=== PATIENT | male | born 1985 | race Caucasian/White ===

== ENCOUNTER 2020-01-16 10:44 | Emergency (ER) | payer OTHER, BC ==
[~2020-01-16] VITALS: Ht 177.8 cm; Wt 83.9 kg
--- OUTSIDE RECORDS SUMMARY | ~2020-01-16 | XMS | Encounter Summary ---
Demographics + + + | Address | [address] | | | [place] [address] | + + + | Home Phone | | + + + | Preferred Language | Unknown | + + + | Marital Status | | + + + | Oriental Orthodox Affiliation | Unknown | + + + | Race | White | + + + | Ethnic Group | Not or | + + + Author + + + | Author | [facility] | | | and [place] | + + + | Organization | [facility] | | | and [place] | + + + | Address | Unknown | + + + | Phone | Unavailable | + + + Support + + + + + | Name | Relationship | Address | Phone | + + + + + | Betty Merrill | ECON | [address] | | | | | [place] | | | | | [address] | | + + + + + Care Team Providers + +------+ + | Care Warehouse Hand Name | Role | Phone | + +------+ + | Tim Urena MD | PCP | | + +------+ + Reason for Visit +--------+ + | Reason | Comments | +--------+ + | Apnea | | +--------+ + Encounter Details +--------+---------+ + + + | Date | Type | Department | Care Team | Description | +--------+---------+ + + + | 09/15/ | Office | [facility] | Sachin Jimenez | HIRA (obstructive | | 2013 | Visit | SLEEP DISORDER [address] | MD [address] | sleep apnea) | | | | [address] [place] | [address] [place] | (Primary Dx) | | | | [place] [address] | [place] [address] | | | | | [phone] | [phone] | | | | | | | | +--------+---------+ + + + Social History + + + +--------+------+ | Tobacco Use | Types | Packs/Day | Years | Date | | | | | Used | | + + + +--------+------+ | Current Every Day | Cigarettes | 1 | 5 | | | Smoker | | | | | + + + +--------+------+ + +---+---+---+ | Smokeless Tobacco: | | | | | Current User | | | | + +---+---+---+ + + +---------+ + | Alcohol Use | Drinks/Week | oz/Week | Comments | + + +---------+ + | Yes | | | 6 pack every 3 weeks | + + +---------+ + + + + | Sex Assigned at | Date Recorded | | | | + + + | Not on file | | + + + documented as of this encounter Last Filed Vital Signs + + + + + | Vital Sign | Reading | Time Taken | Comments | + + + + + | Blood Pressure | 142/82 | 09/15/2013 8:42 AM | | | | | PDT | | + + + + + | Pulse | 66 | 09/15/2013 8:42 AM | | | | | PDT | | + + + + + | Temperature | - | - | | + + + + + | Respiratory Rate | 16 | 09/15/2013 8:42 AM | | | | | PDT | | + + + + + | Oxygen Saturation | 97% | 09/15/2013 8:42 AM | | | | | PDT | | + + + + + | Inhaled Oxygen | - | - | | | Concentration | | | | + + + + + | Weight | 95.4 kg (210 lb 4.8 | 09/15/2013 8:42 AM | | | | oz) | PDT | | + + + + + | Height | - | - | | + + + + + | Body Mass Index | 29.75 | 07/21/2013 10:43 AM | | | | | PST | | + + + + + documented in this encounter Progress Notes Sachin Jimenez Jr., MD - 09/15/2013 8:55 AM PDTThe patient comes in for follow-up on CPA P therapy for HIRA. The patient is on a Resmed S9 autoset CPAP unit which is set at 5-20cm of pressure. The patient has worn CPAP for 14 out of 17 days. The average titrated pressure is 5.3cm; the 95th percentile pressure is 7.6cm; and the maximum titrated pressure is 8.5 cm. The calculated AHI is 0.5. The median daily usage is 7 hours and 6 minutes. He states that arlin bueno is gradually getting used to CPAP and that he has been able to wear it for two nights all night long. He notices that he might feel a little better in the daytime but he isn't sure a bout that. He would like to continue with this. He is having no technical issues with is CPA P. A: HIRA: He is doing well so far on CPAP for mild HIRA. I would like him to continue to wear this every night and I would like to clinically re-evaluate symptoms in 4 more weeks. P: RTC in 4 weeks for clinical reassessment (patient report, 's report, and repeat ques tionnaires). Today, 15 minutes was spent face to face with the patient; the majority of time was spent nidia harper. CC: Dr. Olivia Urena documented in th is encounter Miscellaneous Notes Miscellaneous - VERO KRUSE - 09/15/2013 12:00 AM PDT documented in this encounter Plan of Treatment Not on filedocumented as of this encounter Visit Diagnoses + + | Diagnosis | + + | HIRA (obstructive sleep apnea) - Primary Obstructive sleep apnea (adult) (pediatric) | + + documented in this encounter"
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
--- OUTSIDE RECORDS SUMMARY | ~2020-01-16 | XMS | Clinical Summary ---
Demographics + + + | Address | [address] | | | [place] [address] | + + + | Home Phone | | + + + | Preferred Language | Unknown | + + + | Marital Status | | + + + | Baptist Affiliation | Unknown | + + + | Race | White | + + + | Ethnic Group | Not or | + + + Author + + + | Author | [facility] | | | and [place] | + + + | Organization | [facility] | | | [...] [place] | | | | | [address] | | + + + + + Care Team Providers + +------+ + | Care Slice Cutting Machine Operator Helper Name | Role | Phone | + +------+ + | Tim Urena MD | PCP | | + +------+ + Allergies No Known Allergies Medications + + + +---------+------+------+-------+ | Medication | Sig | Dispensed | Refills | Star | End | Statu | | | | | | t | Date | s | | | | | | Date | | | + + + +---------+------+------+-------+ | potassium citrate | Take 10 mEq by mouth | | 0 | | | Activ | | (UROCIT-K) 10 mEq SR | Daily. | | | | | e | | tablet | | | | | | | + + + +---------+------+------+-------+ | | Take 25 mg by mouth | | 0 | | | Activ | | hydrochlorothiazide | Daily. | | | | | e | | 25 mg tablet | | | | | | | + + + +---------+------+------+-------+ Active Problems + + + | Problem | Noted Date | + + + | Organic insomnia | | + + + | Nephrolithiasis | | + + + Family History + + +------+ + | Medical History | Relation | Name | Comments | + + +------+ + | Heart disease | Father | | | + + +------+ + + +------+ + + | Relation | Name | Status | Comments | + +------+ + + | Brother | | Alive | autism | + +------+ + + | Brother | | Alive | | + +------+ + + | Daughter | | Alive | | + +------+ + + | Father | | Alive | | + +------+ + + | Mother | | | | + +------+ + + | Sister | | Alive | obese | + +------+ + + | Sister | | Alive | obese | + +------+ + + | Sister | | Alive | obese | + +------+ + + | Sister | | Alive | | + +------+ + + | Sister | | Alive | | + +------+ + + | Sister | | Alive | | + +------+ + + | Sister | | Alive | | + +------+ + + Social History + + + [...] on file | | + + + Last Filed Vital Signs + + + + + | Vital Sign | Reading | Time Taken | Comments | + + + + + | Blood Pressure | 108/70 | 10/15/2013 11:31 AM | | | | | PDT | | + + + + + | Pulse | 71 | 10/15/2013 11:31 AM | | | | | PDT | | + + + + + | Temperature | - | - | | + + + + + | Respiratory Rate | 16 | 10/15/2013 11:31 AM | | | | | PDT | | + + + + + | Oxygen Saturation | 98% | 10/15/2013 11:31 AM | | | | | PDT | | + + + + + | Inhaled Oxygen | - | - | | | Concentration | | | | + + + + + | Weight | 91.2 kg (201 lb 1.6 | 10/15/2013 11:31 AM | | | | oz) | PDT | | + + + + + | Height | 179.1 cm (5' 10.5") | 07/21/2013 10:43 AM | | | | | PST | | + + + + + | Body Mass Index | 28.45 | 07/21/2013 10:43 AM | | | | | PST | | + + + + + Plan of Treatment + + +-------+ + | Health Maintenance | Due Date | Last | Comments | | | | Done | | + + +-------+ + | Vaccine: | | | | | Dtap/Tdap/Td (1 - | 5 | | | | Tdap) | | | | + + +-------+ + | Vaccine: Influenza | | | | | (#1) | 0 | | | + + +-------+ + Results Not on filefrom Last 3 Months Insurance +-------+--------+ +--------+-------+---------+------+ | Payer | Benefi | Subscriber | Effect | Phone | Address | Type | | | t Plan | ID | dharmesh | | | | | | / | | Dates | | | | | | Group | | | | | | +-------+--------+ +--------+-------+---------+------+ | BCBS | BCBS | [id number] | 05/28/19 | | | PPO | | | [place] | | 12-Pre | | | | | | L FEP | | sent | | | | +-------+--------+ +--------+-------+---------+------+ + +--------+ +--------+ + + | Guarantor Name | Accoun | Relation to | Date | Phone | Billing Address | | | t Type | Patient | of | | | | | | | | | | + +--------+ +--------+ + + | Coleman Merrill | Person | Self [birth year] | [address] | | | [place] | | 1985 | [phone] | [place] [address] | | | garo | | | [address] (Home) | | + +--------+ +--------+ + + Advance Directives + + + + + | Type | Date Recorded | Patient | Explanation | | | | Cobol Programmer | | + + + + + | Power of | | | | | Precinct Police Captain | | | | + + + + + | Advance | | | | | Directive | | | | + + + + +
--- OUTSIDE RECORDS SUMMARY | ~2020-01-16 | XMS | Encounter Summary ---
Demographics + + + | Address | [address] | | | [place] [address] | + + + | Home Phone | | + + + | Preferred Language | Unknown | + + + | Marital Status | | + + + | Anabaptism Affiliation | Unknown | + + + | Race | White | + + + | Ethnic Group | Not or | + + + Author + + + | Author | [facility] | | | and [place] | + + + | Organization | [facility] | | | and [place] | + + + | Address | Unknown | + + + | Phone | Unavailable | + + + Support + + + + + | Name | Relationship | Address | Phone | + + + + + | Betty Merrill | ECON | [address] | | | | | [place] | | | | | [address] | | + + + + + Care Team Providers + +------+ + | Care Rainbow Trout Farm Manager Name | Role | Phone | + +------+ + | Tim Urena MD | PCP | | + +------+ + Reason for Referral Evaluate & Treat (Routine) +--------+ + + + + + | Status | Reason | Specialty | Diagnoses / | Referred By | Referred To | | | | | Procedures | Contact | Contact | +--------+ + + + + + | Closed | Specialty | Sleep | Diagnoses | Tony | [facility] | | | Services | Medicine | Obstructive | Sachin Odonnell | [address] | | | Required | | sleep apnea | MD [address] | | | | | (adult) | [address] [place] | [place], | | | | | (pediatric) | [place] | [place] [address] | | | | | Periodic | [place], [place] | Phone: | | | | | limb | [address] | [phone] | | | | | movement | Phone: | Fax: | | | | | disorder | [phone] | [phone] | | | | | Sleep | Fax: | | | | | | disorder due | [phone] | | | | | | to a | | | | | | | general | | | | | | | medical | | | | | | | condition, | | | | | | | insomnia | | | | | | | type | | | +--------+ + + + + + Encounter Details +--------+ + + + + | Date | Type | Department | Care Team | Description | +--------+ + + + + | 08/12/ | Transcribed | [facility] | Sachin Jimenez | Obstructive sleep | | 2014 | Orders | [facility] SLEEP | MD [address] | apnea (adult) | | | | CENTER [address] | [address] [place] | (pediatric) (Primary | | | | [place], [place] | [place] [address] | Dx); Periodic limb | | | | [address] | [phone] | movement disorder; | | | | [phone] | | Sleep disorder due | | | | | | to a general medical | | | | | | condition, insomnia | | | | | | type | +--------+ + + + + Social History + + [...] + + documented as of this encounter Plan of Treatment + + +--------+ + + | Name | Type | Priori | Associated Diagnoses | Order Schedule | | | | ty | | | + + +--------+ + + | Ambulatory Referral | Outpatient | Routin | Obstructive sleep | 1 Occurrences | | to Sleep Studies | Referral | e | apnea (adult) | starting 08/12/2013 | | | | | (pediatric) | until 08/12/2014 | | | | | Periodic limb | | | | | | movement disorder | | | | | | Sleep disorder due | | | | | | to a general medical | | | | | | condition, insomnia | | | | | | type | | + + +--------+ + + documented as of this encounter Visit Diagnoses + + | Diagnosis | + + | Obstructive sleep apnea (adult) (pediatric) - Primary | + + | Periodic limb movement disorder | + + | Sleep 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"
--- OUTSIDE RECORDS SUMMARY | ~2020-01-16 | XMS | Encounter Summary ---
Demographics + + + | Address | [address] | | | [place] [address] | + + + | Home Phone | | + + + | Preferred Language | Unknown | + + + | Marital Status | | + + + | Muslim Affiliation | Unknown | + + + | Race | White | + + + | Ethnic Group | Not or | + + + Author + + + | Author | [facility] | | | and [place] | + + + | Organization | [facility] | | | [...] [place] | | | | | [address] | | + + + + + Care Team Providers + +------+ + | Care Air Surveillance Operator Name | Role | Phone | + +------+ + | Tim Urena MD | PCP | | + +------+ + Encounter Details +--------+---------+ + + + | Date | Type | Department | Care Team | Description | +--------+---------+ + + + | 08/29/ | Office | [facility] | Sachin Jimenez | Paradoxical insomnia | | 2014 | Visit | SLEEP DISORDER [address] | MD [address] | (Primary Dx); HIRA | | | | [address] [place] | [address] [place] | (obstructive sleep | | | | [place] [address] | [place] [address] | apnea); PTSD | | | | [phone] | [phone] | (post-traumatic | | | | | | stress disorder) | +--------+---------+ + + + Social History [...] + + + | Blood Pressure | 118/82 | 08/29/2013 9:17 AM | | | | | PDT | | + + + + + | Pulse | 76 | 08/29/2013 9:17 AM | | | | | PDT | | + + + + + | Temperature | - | - | | + + + + + | Respiratory Rate | 16 | 08/29/2013 9:17 AM | | | | | PDT | | + + + + + | Oxygen Saturation | 98% | 08/29/2013 9:17 AM | | | | | PDT | | + + + + + | Inhaled Oxygen | - | - | | | Concentration | | | | + + + + + | Weight | 95.4 kg (210 lb 6.4 | 08/29/2013 9:17 AM | | | | oz) | PDT | | + + + + + | Height | - | - | | + + + + + | Body Mass Index | 29.76 | 07/21/2013 10:43 AM | | | | | PST | | + + + + + documented in this encounter Progress Notes Sachin Jimenez Jr., MD - 08/29/2013 9:23 AM PDTThe patient comes in for f/u on his PSG w hich was performed on 08/12/2013 which showed: Sleep Architecture: Lights out was recorded at 2326 hundred hours and lights on was recorde d at 0713 hundred hours. The latency to sleep onset was normal at 19 minutes. The patient sl ept for 412 minutes out of 467 minutes of study time resulting an a sleep efficiency that wa s near normal at 88.2%. The amount of N1 sleep was normal occupying 4.7% of the Total Sleep Time; the amount of N2 sleep was normal occupying 34.3% of the Total Sleep Time; the amount of N3 sleep was normal in somewhat increased occupying 28.8% of the Total Sleep Time; the am ount of REM sleep was increased occupying 32.2 of the Total Sleep Time and the latency to RE M sleep was mildly short at 50.5 minutes. The patient spent 63.4% of the evening in the left lateral decubitus position, 17.7% of the evening in the right lateral decubitus position, 15% of the evening in the supine position, and 3.9% of the evening in the supine position. Sleep was not significantly fragmented; the Arousal Index was 9.5. The patient reported this to be a worse than usual night's sleep. The patient estimated gustabo t it took 15 minutes to fall asleep which is the same as normal. He felt that he awakened mo re than 5 times and that he slept for 6 hours. He didn't feel that he slept very deeply and that his sleep wasn't very refreshing. The sleep architecture actually demonstrated about 52 minutes more sleep than his estimate and the quality of objective sleep was excellent. Slee p was not significant fragmented. The discordance suggests a degree of "sleep state misperce ption." Cardiopulmonary Monitoring: The heart rate averaged 60 beats per minute. Minimal rate varia bility was noted. The rhythm was sinus. In the course of the evening there were 2 obstructive apneas, 0 mixed apneas, 0 central lock technician eas, 48 hypopneas, and 1 Respiratory Effort Related Arousals (RERA's). The Respiratory Distu rbance Index (RDI) was minimally elevated at 7.4; the Apnea-Hypopnea Index was minimally leonidas vated at 7.3; the Apnea Index (AI) was normal at 0.1. The respiratory events were sleep stag e dependent. They were exclusively seen in REM sleep. The respiratory events were mildly pos itional and were somewhat more frequent in the supine position. The respiratory events occasioned minimal sleep fragmentation; the Respiratory Arousal Inde x was 1. The anupama oxygen saturation was 84% and the patient spent 5.2 minutes with an oxygen satura tion of less than 88%. ETCO2 was normal. Limb Movement Monitoring: There were 0 Periodic Limb Movements of which 0 were associated w ith arousals; the PLMS Arousal Index was normal at 0. Interpretation: This polysomnogram is abnormal secondary to: 1) Very mild HIRA in REM sleep is noted and this is associated with very mild oxygen desatur ation. 2) Sleep State Misperception Syndrome is suggested in view of the discordance between the p atient's subjective assessment of his sleep and the objective assessment of sleep. I've discussed these findings with him. A: 1) Sleep State Misperception Syndrome: I've discussed this with him - current theories a re that in some people (often with anxiety issues), memory consolidation doesn't actually st op at sleep onset. Studies have also suggested that beta frequency EEG waves (associated wit h cognitive activity) persist well into sleep in patients with sleep state misperception syn drome. I have reassured him that his sleep mechanisms are intact. This seemed to reassure hi m some. 2) Mild HIRA: I doubt this is clinically significant but I do think that a CPAP trial i s worthwhile. He agrees. 3) Probably PTSD: I have arranged for formal neuropsychiatric evaluation by Gallo Nunez ov PhD. P: Continue with a regular sleep wake schedule. CPAP trial with clinical f/u in [address] Washington for neuropsychiatric evaluation. Today, 30 minutes was spent face to face with the patient; the majority of time was spent nidia harper. 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
--- OUTSIDE RECORDS SUMMARY | ~2020-01-16 | XMS | Encounter Summary ---
Demographics + + + | Address | [address] | | | [place] [address] | + + + | Home Phone | | + + + | Preferred Language | Unknown | + + + | Marital Status | | + + + | Mu-Ism Affiliation | Unknown | + + + | Race | White | + + + | Ethnic Group | Not or | + + + Author + + + | Author | [facility] | | | and [place] | + + + | Organization | [facility] | | | [...] [place] | | | | | [address] | | + + + + + Care Team Providers + +------+ + | Care General Duty Nurse Name | Role | Phone | + [...] | Specialty | Sleep | Diagnoses | Tony, | [facility] | | | Services | Medicine | Obstructive | Sachin Odonnell | [place] [address] | | | Required | | sleep apnea | MD [address] | [place] | | | | | (adult) | [place] | [place], | | | | | (pediatric) | [facility] | [place] [address] | | | | | | [place], [place] | Phone: | | | | | | [address] | [phone] | | | | | | Phone: | Fax: | | | | | | [phone] | [phone] | | | | | | Fax: | | | | | | | [phone] | | +--------+ + + + + + Encounter Details +--------+ + + + + | Date | Type | Department | Care Team | Description | +--------+ + + + + | 08/07/ | Transcribed | [facility] | Dominic Mobley, | Obstructive sleep | | 2014 | Orders | MED CTR SLEEP | Neurodiagnostic Tech | apnea (adult) | | | | CENTER [address] | | (pediatric) (Primary | | | | [place] | | Dx) | | | | [address] | | | | | | [phone] | | | +--------+ + + + + Social [...] | + + +--------+ + + | Sleep Studies, | Outpatient | Routin | Obstructive sleep | 1 Occurrences | | External - AMB | Referral | e | apnea (adult) | starting 08/07/2013 | | Referral | | | (pediatric) | until 08/07/2014 | + + +--------+ + + documented as of this encounter Visit Diagnoses + + | Diagnosis | + + | Obstructive sleep apnea (adult) (pediatric) - Primary | + + documented in this encounter"
--- OUTSIDE RECORDS SUMMARY | ~2020-01-16 | XMS | Encounter Summary ---
Demographics + + + | Address | [address] | | | [place] [address] | + + + | Home Phone | | + + + | Preferred Language | Unknown | + + + | Marital Status | | + + + | Rastafari Affiliation | Unknown | + + + | Race | White | + + + | Ethnic Group | Not or | + + + Author + + + | Author | [facility] | | | and [place] | + + + | Organization | [facility] | | [...] [place] | | | | | [address] | | + + + + + Care Team Providers + +------+ + | Care Fast Food Crew Lead Name | Role | Phone | + +------+ + | Tim Urena MD | PCP | | + +------+ + Reason for Visit Service/Procedure (Routine) +--------+--------+ + + + + | Status | Reason | Specialty | Diagnoses / | Referred By | Referred To | | | | | Procedures | Contact | Contact | +--------+--------+ + + + + | Closed | | Sleep | Diagnoses | Tony, | [facility] | | | | Medicine | Obstructive | Sachin Odonnell | [place] [address] [address] | | | | | sleep apnea | MD [address] | [place] | | | | | (adult) | [address] [place] | [place], | | | | | (pediatric) | [facility] | [place] [address] | | | | | Procedures | [facility], [place] | Phone: | | | | | AL POLYSOM | [address] | [phone] | | | | | 6/>YRS SLEEP | Phone: | Fax: | | | | | 4/> ADDL | [phone] | [phone] | | | | | NOÉ ATTND | Fax: | | | | | | | [phone] | | +--------+--------+ + + + + Encounter Details +--------+ + + + + | Date | Type | Department | Care Team | Description | +--------+ + + + + | 08/12/ | Hospital | [facility] | Sachin Jimenez | Obstructive sleep | | 2013 | Encounter | MED CTR SLEEP | MD [address]anae [address] [place] | apnea (adult) | | | | CENTER [address] | [address] [place] | (pediatric); | | | | [place], [place] | [place] [address] | Periodic limb | | | | [address] | [phone] | movement disorder; | | | | [phone] | | Sleep disorder due | | [...] + + documented as of this encounter Medications at Time of Discharge + + + +---------+ + + | Medication | Sig | Dispensed | Refills | Start | End Date | | | | | | Date | | + + + +---------+ + + | | Take 25 mg by mouth | | 0 | | | | hydrochlorothiazide | Daily. | | | | | | 25 mg tablet | | | | | | + + + +---------+ + + | potassium citrate | Take 10 mEq by mouth | | 0 | | | | (UROCIT-K) 10 mEq SR | Daily. | | | | | | tablet | | | | | | + + + +---------+ + + | | | | 0 | 07/12/19 | | | HYDROcodone-acetamin | | | | 14 | 4 | | ophen (NORCO) 5-325 | | | | | | | mg per tablet | | | | | | + + + +---------+ + + | | | | 0 | 07/12/19 | | | HYDROcodone-acetamin | | | | 14 | 4 | | ophen (NORCO) 5-325 | | | | | | | mg per tablet | | | | | | + + + +---------+ + + documented as of this encounter Procedure Notes Sachin Jimenez Jr., MD - 08/14/2013 2:21 PM PDTProcedure(s): AL POLYSOM 6/>YRS SLEEP 4/> ADDL NOÉ ATTNDPre-Procedure Diagnose(s): Organic insomniaPost-Procedure Diagnose(s): Antonya dinora insomniaPolysomnogram Report on Coleman Merrill 08/12/2013 Clinical Information: Coleman Merrill is a 28 y.o. male who underwent diagnostic nocturnal poly somnography on 08/12/[address] Tim Urena because of insomnia refractor y to multiple medications. Technical Information: Please see technical data stored as Polysomnography under "Media" se ction in the [employer] EMR. Definitions (The AASM Manual for the Scoring of Sleep and Associated Events, 2007): Apnea: A drop in the peak thermal sensor excursion by 90% or more and a an event duration of at least 10 seconds and at least 90% of the event's duration meets amplitude for apnea. Obstructive Apnea: Event associated with continued or increased inspiratory effort throug hout the entire period of absent airflow. Central Apnea: Event associated with absent inspiratory effort throughout the entire margie od of absent airflow. Mixed Apnea: Event associated with absent inspiratory effort in the initial portion of th e event followed by resumption of inspiratory effort during the second portion of the event. Hypopnea: Nasal pressure signal excursion drop by 50% or more compared to baseline lasting at least 10 seconds (at least 90% of the event's duration must meet this amplitude criteria ) and that is associated with a 3% or greater desaturation OR that is associated with an austin usal. Respiratory Event Related Arousal: A sequence of breaths lasting at least 10 seconds sarika cterized by increasing respiratory effort or flattening of the nasal pressure waveform leadi ng to an arousal from sleep - not meeting the criteria for an apnea or hypopnea. Sleep Architecture: Lights out was recorded at 2326 hundred hours and lights on was record ed at 0713 hundred hours. The latency to sleep onset was normal at 19 minutes. The patient s lept for 412 minutes out of 467 minutes of study time resulting an a sleep efficiency that w as near normal at 88.2%. The amount of N1 sleep was normal occupying 4.7% of the Total Sleep Time; the amount of N2 sleep was normal occupying 34.3% of the Total Sleep Time; the amount of N3 sleep was normal in somewhat increased occupying 28.8% of the Total Sleep Time; the a mount of REM sleep was increased occupying 32.2 of the Total Sleep Time and the latency to R EM sleep was mildly short at 50.5 minutes. [...] obstructive apneas, 0 mixed apneas, 0 central clinical trials manager eas, 48 hypopneas, and 1 Respiratory Effort [...] sleep and the objective assessment of sleep. Suggestions: 1. The principles of sleep hygiene should be reviewed with the patient. 2. A trial of CPAP therapy for HIRA would not be unreasonable. 3. CBT-I of Sleep State Misperception Syndrome might be helpful. 4. Formal Neuro-psychiatric evaluation might be of help. Sachin Jimenez Jr., MD, [facility] Osteopathy Doctor [facility] [place], [place] Clinical operating engineer [place], [place] NBAS E [facility] - 08/12/2013 12:00 AM PDTAssociated Order(s): DIAGNOSTIC REPORT - EXTERNAL SCANE lectronically signed by Bailee Huston at 08/18/2013 12:26 PM PDTdocumented in this encounter Plan of Treatment Not on filedocumented as of this encounter Procedures + +--------+ + + + | Procedure Name | Priori | Date/Time | Associated Diagnosis | Comments | | | ty | | | | + +--------+ + + + | DIAGNOSTIC REPORT - | | 08/12/2013 | | | | EXTERNAL SCAN | | 12:00 AM | | | | | | PDT | | | + +--------+ + + + documented in this encounter Visit Diagnoses + + | Diagnosis | + + | Obstructive sleep apnea (adult) (pediatric) | + + | Periodic limb movement disorder | + + | Sleep 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
--- OUTSIDE RECORDS SUMMARY | ~2020-01-16 | XMS | Encounter Summary ---
Demographics + + + | Address | [address] | | | [place] [address] | + + + | Home Phone | | + + + | Preferred Language | Unknown | + + + | Marital Status | | + + + | Temple Affiliation | Unknown | + + + | Race | White | + + + | Ethnic Group | Not or | + + + Author + + + | Author | [facility] | | | and [place] | + + + | Organization | [facility] | | | [...] [place] | | | | | [address] | | + + + + + Care Team Providers + +------+ + | Care Production Planning Manager Name | Role | Phone | + +------+ + | Tim Urena MD | PCP | | + +------+ + Reason for Visit +--------+ + | Reason | Comments | +--------+ + | Apnea | | +--------+ + Encounter Details +--------+---------+ + + + | Date | Type | Department | Care Team | Description | +--------+---------+ + + + | 10/15/ | Office | [facility] | Sachin Jimenez | HIRA (obstructive | | 2013 | Visit | SLEEP DISORDER [address] | MD [address] | sleep apnea) | | | | [address] [place] | [address] [place] | (Primary Dx); | | | | [place] [address] | [place] [address] | Organic insomnia | | | | [phone] | [phone] | | | | | | | [...] Progress Notes Sachin Jimenez Jr., MD - 10/15/2013 11:43 AM PDTThe patient comes in for follow-up on CPA P therapy for HIRA. The patient is on a Resmed S9 autoset CPAP unit which is set at 5-20 cm o f pressure. The patient has worn CPAP for 22 out of 30 days. The average titrated pressure i s 5.3cm; the 95th percentile pressure is 7.9cm; and the maximum titrated pressure is 8.3 cm. The calculated AHI is 0.7. The median daily usage is 5 hours and 26 minutes. He doesn't thi nk that he really feels much different than before starting CPAP. His agrees. The patient and his have elected not to see Dr. Washington yet because of insurance issues . Questionnaires Review: The score of 6 on the [place] Sleepiness scale suggests insignifican t recognized excessive daytime sleepiness. The score of 17 on the Insomnia Severity Scale francois ggests that the patient has significant dissatisfaction with the quality of sleep. The score of 20 on the Berrios Depression Inventory is consistent with moderate depression. The score of 3 on the Berrios Anxiety Inventory suggests minimal recognized anxiety. The SF36v2 suggests av erage to slightly above average scores on all scales and subscales. There has been mild but significant improvement in Vitality, Social Function subscales and the Mental Component Scal e though. A: Mild HIRA: Neither the patient nor his believe that he is getting significant benefi t from CPAP. He doesn't wish to try a dental appliance. His apnea was very mild. I've sugges andrea he stop CPAP. Insomnia: I suspect this is related to depression and possible PTSD. They will think a bout contacting the [facility]. P: Return CPAP Consider contacting [facility] F/u prn. Today, 15 minutes was spent face to face with the patient; the majority of time was spent c ounseling regarding HIRA, PTSD, Insomnia. Sachin Irene Jr., MD - 10/15/2013 11:32 AM PDTFormatting of this note might be different from the origin al. 10/15/13 1100 Berrios Depression Inventory-II Depression Score 20 - Moderate depression Insomnia Severity Index Insomnia Severity Index 17 [place] Sleepiness Scale Sitting and reading 1 Watching TV 2 Sitting, inactive in a public place (e.g. a theatre or a meeting) 0 As a passenger in a car for an hour without a break 1 Lying down to rest in the afternoon when circumstances permit 1 Sitting and talking to someone 0 Sitting quietly after a lunch without alcohol 1 In a car, while stopped for a few minutes in traffic 0 Total score 6 SF-36v2 Score PF 57.03 RP 56.85 BP 51.13 GH 52.93 VT 48.97 SF 56.85 RE 55.88 MH 55.64 PCS 54.03 MCS 54.27 documented in t his encounter Miscellaneous Notes Miscellaneous - ONBASE SCAN [facility] - 10/15/2013 12:00 AM PDT iscellaneous - ONBASE SCAN [facility] - 10/15/2013 12:00 AM PDTEle ctronically signed by Bailee Huston at 10/16/2013 2:03 PM PDTdocumented in this encounter Plan of Treatment Not on filedocumented as of this encounter Visit Diagnoses + + | Diagnosis | + + | HIRA (obstructive sleep apnea) - Primary Obstructive sleep apnea (adult) (pediatric) | + + | Organic insomnia Organic insomnia, unspecified | + + documented in this encounter"
[~2020-01-16 10:44] MED LIST: BUPROPION HCL150 M2 PO; HYDROCHLOROTHIA25 MG PO; NORCO 5-325 TA1 EACH PO; POTASSIUM CHLO10 MEQ PO
--- OUTSIDE RECORDS SUMMARY | 2020-01-16 10:46 | XMS ---
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 EBong VISIT COUNT (12 MO.) 1 ZARA Morales TOTAL 1 NOTE: Visits indicate total known visits. ED/UCC VISIT TRACKING (12 MO.) 01/16/2020 10:[address] [facility] [place] TYPE: Emergency COMPLAINT: - VISUAL DISTURBANCE IN RIGHT EYE INPATIENT VISIT TRACKING (12 MO.) No inpatient visits to display in this time frame [id number]
[2020-01-16] MEDS ORDERED: SERTRALINE HCL25 MG PO (11:03)
[2020-01-16] MEDS ORDERED: DEXTROAMP-AMPHE30 MG PO (11:03)
== END 2020-01-16 12:13 | disposition home or self-care (01) ==
LOC: ED 10:44
DX: H53.10 Unspecified subjective visual disturbances (principal); Z87.891 Personal history of nicotine dependence; Z79.899 Other long term (current) drug therapy
CPT/HCPCS: 99283